=== PATIENT | male | born 1970 | race Caucasian/White ===

== ENCOUNTER 2016-12-18 18:39 | Emergency (ER) | payer MEDICAID ==
[~2016-12-18] VITALS: Ht 180.3 cm; Wt 113.4 kg
[2016-12-18 19:12] LABS: *BLOOD, URINE 2+ (NEGATIVE); *CLARITY,URINE CLEAR (CLEAR); *COLOR,URINE YELLOW (YELLOW); *KETONES,URINE NEGATIVE (NEGATIVE); *PROTEIN,URINE 1+ (NEGATIVE); *UROBILINOGEN,URINE 0.2 E.U./dl (NORMAL); LEUKOCYTE ESTERASE ,URINE 1+ (NEGATIVE); NITRITE, URINE POSITIVE (NEGATIVE); PH,URINE 5.5 (5.0-8.0); UGLUCOSE NEGATIVE (NEGATIVE)
[2016-12-18 19:26] LABS: BACTERIA,URINE MODERATE /HPF (NONE SEEN); SQUAMOUS EPITHELIAL CELL,UR FEW /HPF (NONE SEEN); WBC,URINE 20-50 /HPF (0-3)
[2016-12-18 19:31] LABS: *BILIRUBIN,URIN 1+ (NEGATIVE)
[2016-12-18] MEDS ORDERED: LEVOFLOXACIN 750 MG/D5W 150 ML PIGGYBACK IV ONE (20:30)
[2016-12-18] MEDS ORDERED: CEFTRIAXONE 500 MG VIAL IV ONE (20:30)
[2016-12-18 20:50] LABS: BASOPHILS # (AUTO) 0.1 K/uL (0.0-8.0); BASOPHILS % (AUTO) 0.7 % (0.0-2.0); EOSINOPHILS # (AUTO) 0.5 K/uL (0.0-0.7); EOSINOPHILS % (AUTO) 4.3 % (0.0-7.0); HEMOGLOBIN 16.2 G/DL (14.0-18.0); LYMPHOCYTES # (AUTO) 2.8 K/UL (0.8-4.8); LYMPHOCYTES % (AUTO) 23.6 % (20.5-51.5); MEAN CORPUSCULAR HEMOGLOBIN 30.1 UUG (27.0-31.0); MEAN CORPUSCULAR HGB CONC 34 g/dL (32.0-37.0); MEAN CORPUSCULAR VOLUME 87.7 FL (82.0-92.0); MONOCYTES # (AUTO) 1.2 K/UL (0.1-1.30); MONOCYTES % (AUTO) 9.7 % (0.0-11.0); NEUTROPHILS # (AUTO) 7.3 K/UL (1.8-8.9); NEUTROPHILS % (AUTO) 61.7 % (38.5-71.5); PLATELET COUNT (AUTO) 170 K/UL (150-450); RED BLOOD CELL COUNT(AUTO) 5.36 MIL/UL (4.7-6.1); WHITE BLOOD COUNT (AUTO) 11.9 K/UL (4.0-11.2)
[2016-12-18] MEDS ORDERED: LEVOFLOXACIN 750MG/D5W 150 ML IV ONE (20:50)
[2016-12-18] MEDS ORDERED: CEFTRIAXONE 500 MG VIAL ONE (20:50)
[2016-12-18 21:15] LABS: BILIRUBIN,TOTAL 0.6 mg/dL (0.2-1.0); TOTAL PROTEIN, SERUM 8.1 g/dL (6.4-8.2)
--- NOTE | 2016-12-18 22:15 | NUR ---
IV removed. Catheter intact and site benign. Pressure and 4x4 gauze applied to site. No bleeding noted.
--- NOTE | 2016-12-18 22:17 | NUR ---
Patient discharged to home in stable conditon WITH TAKING PATIENT HOME. Written and verbal after care instructions given. Patient verbalizes understanding of instructions. WALKED OUT OF ER WITH STEADY GAIT
[2016-12-18 22:18] VITALS: BP 128/80
== END 2016-12-18 22:19 | disposition home or self-care (01) ==
LOC: ER 18:41
DX: N45.1 Epididymitis (principal); R74.8 Abnormal levels of other serum enzymes; F10.20 Alcohol dependence, uncomplicated; F17.210 Nicotine dependence, cigarettes, uncomplicated
CPT/HCPCS: 76870; 85025; 87077; 87086; 87491; A4663; J0696; J1956

== ENCOUNTER 2024-02-29 18:14 | Emergency (ER) | payer SELFPAY ==
[~2024-02-29] VITALS: Ht 177.8 cm; Wt 108.0 kg
[2024-02-29] MEDS ORDERED: HYDROCODONE/APAP 10-325 MG TABLET ONE (19:09)
[2024-02-29] MEDS ORDERED: levoFLOXacin 750MG/D5W 150 ML IV ONE (19:09)
[2024-02-29] MEDS ORDERED: ONDANSETRON ODT 4 MG TAB.RAPDIS ONE (19:09)
[2024-02-29] MEDS ORDERED: CEFTRIAXONE /D5W 50ML IVPB **ER PYXIS IV ONE (19:09)
[2024-02-29 19:14] LABS: BASOPHILS # (AUTO) 0.1 K/UL (0.0-0.2); BASOPHILS % (AUTO) 0.8 % (0.0-2.0); EOSINOPHILS # (AUTO) 0.6 K/uL (0.0-0.7); EOSINOPHILS % (AUTO) 3.5 % (0.0-7.0); HEMATOCRIT 47.8 % (36.7-47.1); HEMOGLOBIN 16.3 g/dL (12.5-16.3); LYMPHOCYTES # (AUTO) 4.4 K/uL (0.8-4.8); LYMPHOCYTES % (AUTO) 27.4 % (20.5-51.5); MEAN CORPUSCULAR HEMOGLOBIN 31.7 uug (23.8-33.4); MEAN CORPUSCULAR HGB CONC 34 g/dL (32.5-36.3); MEAN CORPUSCULAR VOLUME 93.4 fL (73.0-96.2); MONOCYTES # (AUTO) 1.6 K/uL (0.1-1.30); MONOCYTES % (AUTO) 9.9 % (0.0-11.0); NEUTROPHILS # (AUTO) 9.5 K/uL (1.8-8.9); NEUTROPHILS % (AUTO) 58.4 % (38.5-71.5); PLATELET COUNT (AUTO) 111 K/uL (152-348); RED BLOOD CELL COUNT(AUTO) 5.12 MIL/uL (4.06-5.63); RED CELL DISTRIBUTION WIDTH 13.4 % (12.1-16.2); WHITE BLOOD COUNT (AUTO) 16.2 K/uL (3.6-10.2)
[2024-02-29 19:17] LABS: *BILIRUBIN,URIN 1+ (NEGATIVE); *BLOOD, URINE NEGATIVE (NEGATIVE); *CLARITY,URINE CLEAR (CLEAR); *KETONES,URINE NEGATIVE (NEGATIVE); *PROTEIN,URINE 1+ (NEGATIVE); LEUKOCYTE ESTERASE ,URINE NEGATIVE (NEGATIVE); NITRITE, URINE NEGATIVE (NEGATIVE); PH,URINE 5.5 (5.0-8.0); UGLUCOSE NEGATIVE (NEGATIVE)
[2024-02-29] MEDS: ONDANSETRON ODT 4 MG TAB.RAPDIS SL ONE (19:18)
[2024-02-29] MEDS: levoFLOXacin 750 MG/D5W 150 ML PIGGYBACK IV ONE (19:19)
[2024-02-29] MEDS: HYDROCODONE/APAP 10-325 MG TABLET PO ONE (19:19)
[2024-02-29 19:22] LABS: *COLOR,URINE DARK YELLOW (YELLOW); DIFFERENTIAL COMMENT 1
[2024-02-29 19:25] LABS: CREATININE 0.9 mg/dL (0.6-1.3); POTASSIUM 3.9 mmol/L (3.5-5.1)
[2024-02-29 19:29] LABS: BACTERIA,URINE NONE SEEN /HPF (NONE SEEN); RBC,URINE 0-3 /HPF (0-3); SQUAMOUS EPITHELIAL CELL,UR MODERATE /HPF (NONE SEEN); WBC,URINE 0-3 /HPF (0-3)
[2024-02-29 19:31] LABS: ALBUMIN 3.3 g/dL (3.4-5.0); BILIRUBIN,TOTAL 1.4 mg/dL (0.2-1.0); TOTAL PROTEIN, SERUM 8.5 g/dL (6.4-8.2)
[2024-02-29] MEDS ORDERED: LEVO500T90 PO (20:11)
[2024-02-29] MEDS: CEFTRIAXONE 1 G in IV DEXTROSE 5% 50 ML IV ONE (20:15)
[2024-02-29 20:32] VITALS: BP 134/83; O2SAT 99
== END 2024-02-29 20:33 | disposition home or self-care (01) ==
LOC: ER 18:15
DX: N45.1 Epididymitis (principal); F17.210 Nicotine dependence, cigarettes, uncomplicated; Z79.899 Other long term (current) drug therapy
CPT/HCPCS: 99285; 96365; 96367; 99406; 80053; 81001; 85025; 85610; 87040 ×2; 36415; 76870; 87086; J0696; J1956; A4606; A4663; Q0162